=== PATIENT | female | born 1970 | race Two or more races ===

== ENCOUNTER → 2024-05-11 | Outpatient (CLI) | payer BC, SELFPAY ==
[2024-05-11 14:39] LABS: Misc Send Out* See Sep Rpt
[2024-05-11 15:31] LABS: Basophils % (Auto) 1 % (0-2.5); Eosinophils # (Auto) 0.1 Thou/mm3 (0.0-0.5); Eosinophils % (Auto) 3 % (0-10); Hematocrit 39.1 % (36.0-46.0); Hemoglobin 12.7 g/dL (12.0-16.0); Immature Granulocytes % (Auto) 1 % (0-0); Immature Granulocytes Auto 0.02 Thou/mm3 (0.00-0.00); Lymphocytes # (Auto) 1.3 Thou/mm3 (1.0-4.8); Lymphocytes % (Auto) 33 % (10-50); Mean Corpuscular HGB Conc 32.5 g/dl (31.0-37.0); Mean Corpuscular Hemoglobin 29.8 pg (25.0-35.0); Mean Corpuscular Volume 92 fL (80-100); Monocytes # (Auto) 0.3 Thou/mm3 (0.0-0.8); Monocytes % (Auto) 7 % (0-12); Neutrophils # (Auto) 2.3 Thou/mm3 (1.8-7.7); Neutrophils % (Auto) 56 % (37-80); Nucleated Red Blood Cell % 0 /100 WBC (0); Platelet Count 188 Thou/mm3 (140-440); RDW Standard Deviation 41.2 fL (36.4-46.3); Red Blood Count 4.26 Miln/mm3 (4.00-5.20)
[2024-05-11 15:53] LABS: Ferritin 51 ng/mL (7.3-270.7)
[2024-05-11 15:55] LABS: Folate 18.95 ng/mL (>5.38); Vitamin B12 802 pg/mL (211-911)
[2024-05-23 06:55] LABS: ANA Pattern NUCLEAR, SPECKLED; ANA Screen, IFA POSITIVE (NEGATIVE); Homocysteine* 12.6 umol/L (<10.4); IgA, Serum* 182 mg/dL (47-310); IgG, Serum* 771 mg/dL (600-1640); IgM, Serum* 116 mg/dL (50-300); Methylmalonic Acid, GC/MS/MS* 224 nmol/L (55-335); Vitamin A (Retinol)* 41 mcg/dL (38-98)
== END | disposition home or self-care (01) ==
LOC: COPL 14:15
PROVIDERS: PCP Family Medicine; Referring Provider Nurse Practitioner Family; Visit Provider Nurse Practitioner Family
DX: R76.0 Raised antibody titer (principal); R79.9 Abnormal finding of blood chemistry, unspecified
CPT/HCPCS: 36415; 82607; 82728; 82746; 82784; 83090; 83921; 84590; 85025; 86038; 86039

== ENCOUNTER → 2024-06-07 | Outpatient (CLI) | payer BC, SELFPAY | END | disposition home or self-care (01) | LOC: SLDO 11:55 | PROVIDERS: PCP Nurse Practitioner Family; Referring Provider Nurse Practitioner Family; Visit Provider Nurse Practitioner Family | DX: N39.0 Urinary tract infection, site not specified (principal) | CPT/HCPCS: 87077; 87086; 87186 ==

== ENCOUNTER → 2024-06-17 | Outpatient (CLI) | payer BC, SELFPAY ==
--- NOTE | 2024-06-17 16:00 | XR_ITS ---
Examination: Ultrasound soft tissue extremity right hip TECHNIQUE: Grayscale sonographic images soft tissue right hip Exam date and time: June 17, 2024 1455 hours INDICATIONS: Palpable lump upper posterior right hip note is beginning 2 years ago, increasing in size FINDINGS: 2.4 x 1.4 x 2.6 cm solid mass, vascular in the soft tissue posterior right hip area IMPRESSION: 2.4 x 1.4 x 2.6 cm soft tissue solid mass with vascularity posterior right hip Differential would include soft tissue tumor Recommend MRI right hip pelvis follow-up pre and postcontrast
== END | disposition home or self-care (01) ==
LOC: CDIM 14:42
PROVIDERS: PCP Family Medicine; Referring Provider Nurse Practitioner Family; Visit Provider Nurse Practitioner Family
DX: R22.41 Localized swelling, mass and lump, right lower limb (principal)
CPT/HCPCS: 76882

== ENCOUNTER → 2024-06-23 | Outpatient (CLI) | payer BC, SELFPAY ==
[2024-06-23 17:13] LABS: Alanine Aminotransferase 13 U/L (10-49); Albumin, Serum 4.6 gm/dL (3.5-5.0); Alkaline Phosphatase 129 U/L (46-116); Anion Gap 10 (7-16); Aspartate Amino Transferase 21 U/L (0-34); BUN/Creatinine Ratio 11 Ratio (12-20); Bilirubin,Total 0.4 mg/dL (0.3-1.2); Blood Urea Nitrogen 9 mg/dL (9-23); Calcium 10.1 mg/dL (8.3-10.6); Calcium (Corrected) 10.1 mg/dL (8.5-10.1); Carbon Dioxide 25.3 mMol/L (20.0-31.0); Chloride 110 mMol/L (98-107); Creatinine (Component) 0.8 mg/dL (0.6-1.3); Globulin 2.3 gm/dL (2.3-3.5); Glucose 94 mg/dL (74-106); Osmolality,Calculated 287 (275-295); Sodium 145 mMol/L (136-145); Total Protein 6.9 gm/dL (5.7-8.2); eGFR > 60 See Note
== END | disposition home or self-care (01) ==
LOC: COPL 15:26
PROVIDERS: PCP Family Medicine; Referring Provider Nurse Practitioner Family; Visit Provider Nurse Practitioner Family
DX: R53.82 Chronic fatigue, unspecified (principal)
CPT/HCPCS: 36415; 80053

== ENCOUNTER → 2024-06-28 | Outpatient (CLI) | payer BC, SELFPAY ==
--- NOTE | 2024-06-28 14:15 | XR_ITS ---
Examination: Screening digital mammography, bilateral Computer aided detection 3-D breast Tomosynthesis, bilateral Date and time of exam: June 28, 2024 1404 hours Compared to mammograms dating to September 03, 2016 Indication: Screening Technique: Nonmagnified MLO, CC views of the breasts to been obtained, reconstructed from 3-D Tomosynthesis images. R2 computer aided detection program utilized for evaluation of suspicious masses and/or abnormal calcifications. 3-D Tomosynthesis images obtained. Findings: Scattered areas of fibroglandular density. Benign calcifications. Intact implants. No interval suspicious masses Impression: BI-RADS category II: Benign Findings. Recommend 1 year follow-up mammogram.
== END | disposition home or self-care (01) ==
LOC: CDIM 13:48
PROVIDERS: Referring Provider Student in an Organized Health Care Education/Training Program; Visit Provider Student in an Organized Health Care Education/Training Program
DX: Z12.31 Encounter for screening mammogram for malignant neoplasm of breast (principal); R92.323 Mammographic fibroglandular density, bilateral breasts; R92.1 Mammographic calcification found on diagnostic imaging of breast
CPT/HCPCS: 77063; 77067

== ENCOUNTER → 2024-07-13 | Outpatient (CLI) | payer BC, SELFPAY | END | disposition home or self-care (01) | LOC: SLDO 15:12 | PROVIDERS: PCP Nurse Practitioner Family; Referring Provider Nurse Practitioner Family; Visit Provider Nurse Practitioner Family | DX: N39.0 Urinary tract infection, site not specified (principal) | CPT/HCPCS: 87077; 87086; 87186 ==

== ENCOUNTER → 2024-07-16 | Outpatient (CLI) | payer BC, SELFPAY ==
--- NOTE | 2024-07-16 07:30 | XR_ITS ---
Examination: MRI abdomen pelvis with intravenous contrast Technique: Multiple axial sagittal coronal MRI images pelvis Exam date and time: July 16, 1999 2507 400 hours Indications: Palpable mass lower back note is beginning 2 years ago Findings: Circumscribed mass in the soft tissue posterior lower back on the right at the area concern, 25 x 10 mm with small rim-like enhancement Bones of the pelvis intact No mass within the pelvis Urinary bladder intact No right or left hip abnormality Impression: Circumscribed 25 at 10 mm mass with rim-like enhancement in the soft tissue posterior lower back on the right at the area concern Imaging characteristics favor benign soft tissue mass including cyst, sebaceous mass, less likely abscess Consider ultrasound-guided aspiration biopsy of this mass post intravenous administration 18 cc gadolinium
--- NOTE | 2024-07-16 08:00 | XR_ITS ---
Examination: MRI right hip with intravenous contrast Technique: Multiple MR images axial sagittal coronal right hip post intravenous administration 50 cc gadolinium Exam date and time: July 1999 2507 400 hours Indications: Soft tissue mass posterior lower back note is beginning 2 years ago. Findings: Adequate marrow signal right hip No bone contusion marrow edema or occult fracture or avascular process Asymmetric right hip effusion Labral margins appear intact Please see the MRI pelvis report, the [id number] including the mass of concern Impression: No right hip abnormality Please see the MRI pelvis report
== END | disposition home or self-care (01) ==
LOC: SMRI 06:58
PROVIDERS: PCP Family Medicine; Referring Provider Nurse Practitioner Family; Visit Provider Nurse Practitioner Family
DX: R19.09 Other intra-abdominal and pelvic swelling, mass and lump (principal)
CPT/HCPCS: 72196; 73722; A9579

== ENCOUNTER 2024-07-17 14:40 | Emergency (ER) | payer BC, SELFPAY ==
[2024-07-17 14:42] VITALS: BMI 27.2
[2024-07-17 14:56] VITALS: BP 143/81; PULSE 108; RESP 18; TEMP 36.7; O2SAT 97
--- NOTE | 2024-07-17 15:06 | PD.EDRME ---
Rapid Medical Screening Exam RME Arrival date/time: 07/17/24 14:40 This is a 53-year-old female that comes in with complaints of right leg pain specifically right upper thigh pain. Patient states that her right upper thigh is swollen and feels like there is a bump to it. Patient states her leg feels cold patient able to move the leg with pain. Patient has a history of migraine, asthma, depression, anxiety, pulmonary embolism. Patient also complains of lower back pain. Patient had an MRI done yesterday for a separate issue see results. I have greeted and performed a focused initial assessment of this patient. Initial appropriate labs ordered at this time. A comprehensive ED assessment and evaluation of the patient and analysis of all test and completion of medical decision making process will be conducted by additional ED provider. Chief Complaint: Extremity Problem,Nontraumatic Time Seen by Provider: 07/17/24 14:58 Vital signs: Vital Signs Temperature 98.1 F 07/17/24 14:56 Pulse Rate 108 H 07/17/24 14:56 Respiratory Rate 18 07/17/24 14:56 Blood Pressure 143/81 H 07/17/24 14:56 Pulse Oximetry (%) 97 07/17/24 14:56 Oxygen Delivery Method Room Air 07/17/24 14:56
--- NOTE | 2024-07-17 15:16 | XR_ITS ---
Examination: Duplex scan of the lower extremity, unilateral right complete Date and time of exam: July 17, 2024 1537 hrs. Indications: Right leg swelling and pain beginning 3 days ago Technique: Duplex scan of the extremity veins using B-mode/grayscale imaging and Doppler spectral analysis and color flow Attention is directed to internal echogenicity, compression and augmentation involving these veins, color flow assessment, spectral analysis Findings: Major deep venous structures in the extremity demonstrate normal course and caliber. There is no evidence of deep vein thrombosis. Normal color flow and spectral analysis Impression: Negative for DVT..
--- NOTE | 2024-07-17 15:16 | XR_ITS ---
Examination: Ultrasound soft tissue extremity right thigh Technique: Grayscale sonographic images soft tissue right upper thigh Exam date and time: July 17, 2024 1545 hrs. Indications: Right upper thigh swelling and pain beginning 3 days ago Findings: No cystic or solid mass depicted Impression: No cystic or solid mass depicted If symptoms persist, consider MRI done without contrast follow-up
[2024-07-17 16:22] LABS: Basophils % (Auto) 0 % (0-2.5); Eosinophils % (Auto) 1 % (0-10); Hematocrit 43.6 % (36.0-46.0); Hemoglobin 14.2 g/dL (12.0-16.0); Immature Granulocytes % (Auto) 0 % (0-0); Immature Granulocytes Auto 0.01 Thou/mm3 (0.00-0.00); Lymphocytes # (Auto) 1.1 Thou/mm3 (1.0-4.8); Lymphocytes % (Auto) 27 % (10-50); Mean Corpuscular HGB Conc 32.6 g/dl (31.0-37.0); Mean Corpuscular Hemoglobin 29.6 pg (25.0-35.0); Mean Corpuscular Volume 91 fL (80-100); Monocytes # (Auto) 0.2 Thou/mm3 (0.0-0.8); Monocytes % (Auto) 5 % (0-12); Neutrophils # (Auto) 2.6 Thou/mm3 (1.8-7.7); Neutrophils % (Auto) 67 % (37-80); Nucleated Red Blood Cell % 0 /100 WBC (0); RDW Standard Deviation 43.1 fL (36.4-46.3); Red Blood Count 4.79 Miln/mm3 (4.00-5.20); White Blood Count 3.9 Thou/mm3 (3.6-11.0)
[2024-07-17 16:31] LABS: Collection Type, Urine Voided
[2024-07-17 16:35] LABS: INR 1.1 (0.9-1.3); Prothrombin Time 11.6 Seconds (9.0-12.2)
[2024-07-17 16:35] LABS: Bilirubin,Urine Negative (Negative); Blood,Urine Negative (Negative); Clarity,Urine Clear (Clear/Hazy); Color,Urine Lt-Yellow (Lt Yel-Yel); Culture Indicated,Urine Not Indicated; Glucose, Urine Negative (Negative); Ketones,Urine Negative (Negative); Leukocyte Esterase,Urine Negative (Negative); Nitrite,Urine Negative (Negative); PH,Urine 7.5 (5.0-7.0); Protein,Urine Trace (Neg - Trace); RBC,Urine 2 /hpf (0-3); Specific Gravity,Urine 1.015 (1.001-1.035); Squamous Epithelial Cell,Urine < 1 /hpf (0-5); Urobilinogen,Urine Negative mg/dL (0.0-1.0); WBC,Urine 1 /hpf (0-5)
[2024-07-17 16:42] LABS: Platelet Count 150 Thou/mm3 (140-440)
[2024-07-17 16:44] LABS: Alanine Aminotransferase 16 U/L (10-49); Albumin, Serum 4.9 gm/dL (3.5-5.0); Alkaline Phosphatase 144 U/L (46-116); Anion Gap 9 (7-16); Aspartate Amino Transferase 22 U/L (0-34); BUN/Creatinine Ratio 13 Ratio (12-20); Bilirubin,Total 0.4 mg/dL (0.3-1.2); Blood Urea Nitrogen 9 mg/dL (9-23); Calcium 9.8 mg/dL (8.3-10.6); Calcium (Corrected) 9.8 mg/dL (8.5-10.1); Carbon Dioxide 26.4 mMol/L (20.0-31.0); Chloride 107 mMol/L (98-107); Creatinine (Component) 0.7 mg/dL (0.6-1.3); Globulin 2.4 gm/dL (2.3-3.5); Glucose 101 mg/dL (74-106); Osmolality,Calculated 281 (275-295); Potassium 3.7 mMol/L (3.4-5.1); Sodium 142 mMol/L (136-145); Total Protein 7.3 gm/dL (5.7-8.2); eGFR > 60 See Note
[2024-07-17 19:48] VITALS: RESP 18
--- NOTE | 2024-07-17 19:49 | EDNOTE_ITS ---
<Statement entered by Zahra Anne MD - 07/21/24 13:24> As co-signing physician, I was present and available for consult prn. I concur with the plan and care as documented by the midlevel provider. ED Extremity Problem RME/HPI General Chief complaint: Extremity Problem,Nontraumatic Stated complaint: SWELLING/PAIN RIGHT LEG x 3 DAYS, HX PE Time Seen by Provider: 07/17/24 14:58 Arrival date/time: 07/17/24 14:40 This is a 53-year-old female that comes in with complaints of right leg pain specifically right upper thigh pain. Patient states that her right upper thigh is swollen and feels like there is a bump to it. Patient states her leg feels cold patient able to move the leg with pain. Patient has a history of migraine, asthma, depression, anxiety, pulmonary embolism. Patient also complains of lower back pain. Limitations: no limitations RME / HPI RME / HPI Narrative: 07/17/24 14:40 This is a 53-year-old female that comes in with complaints of right leg pain specifically right upper thigh pain. Patient states that her right upper thigh is swollen and feels like there is a bump to it. Patient states her leg feels cold patient able to move the leg with pain. Patient has a history of migraine, asthma, depression, anxiety, pulmonary embolism. Patient also complains of lower back pain. Patient had an MRI done yesterday for a separate issue see results. I have greeted and performed a focused initial assessment of this patient. Initial appropriate labs ordered at this time. A comprehensive ED assessment and evaluation of the patient and analysis of all test and completion of medical decision making process will be conducted by additional ED provider. Related Data Home Medications ?Medication ?Instructions ?Recorded ?Confirmed Hydrocodone/Acetaminophen (NORCO 1 tab PO Q6H PRN PAIN #0 tabs 02/18/14 06/18/21 10/325) sumatriptan succinate 100 mg 100 mg PO PRN Migraine He adache #0 10/16/16 06/18/21 tablet (Imitrex) tabs alprazolam 0.5 mg tablet (Xanax) 0.5 mg PO .PRN 06/18/21 tizanidine 4 mg capsule 2 mg PO QHS Migraine Headach e/s 09/10/17 06/18/21 bupropion HCl 150 mg 24 hr tablet, 150 mg PO QDAY Anxi ety 02/04/21 06/18/21 extended release cyanocobalamin (vitamin B-12) 1,000 mcg subcut QWEEK 0 02/04/21 06/18/21 1,000 mcg/mL injection solution estradiol 0.0375 mg/24 hr mg topical QWEEK 02/04/21 semiweekly transdermal patch hydrocodone 10 mg-acetaminophen 10 tab PO Q6H PRN Pain , Moderate 02/04/21 06/18/21 325 mg tablet morphine 30 mg tablet,extended 15 mg PO Q8HR 02/04/21 06/18/21 release omeprazole 40 mg capsule,delayed 40 mg PO QDAY GERD 02/04/21 release topiramate 100 mg tablet (Topamax) mg DAILY 06/18/21 Allergies Allergy/AdvReac Type Severity Reaction Status Date / Time No Known Allergies Allergy Verified 07/17/24 14:42 Review of Systems Review of Systems Systems Reviewed: All systems reviewed, normal except as documented Narrative Review of Systems: Gen: No fever, no chills, no weight loss EYES: No discharge, no visual changes, no pain HEENT: No ear pain, no congestion, no sore throat PULM: No shortness of breath, no cough, no congestion CV: No chest pain, no dyspnea on exertion, no palpitations GI: No nausea, no vomiting, no diarrhea, no pain, no constipation : No frequency, no urgency,? no dysuria Musc/skel: rt upper thigh pain, no back pain Skin: No rash? Psyc: No hallucinations, no depression Heme/Lymph: No easy bleeding or bruising tendencies Neuro: No weakness, no headache ED Exam General Limitations: Present no limitations General appearance: Present alert and in no apparent distress Head Head exam: Present atraumatic Eye Eye exam: Present normal appearance, PERRL and EOMI ENT ENT exam: Present normal exam, normal oropharynx and mucous membranes moist Neck Neck exam: Present normal inspection, full ROM and trachea midline Chest Chest inspection: Present normal inspection and symmetric chest wall rise Respiratory Respiratory exam: Present normal lung sounds bilaterally Cardiovascular Cardiovascular exam: Present regular rate, normal rhythm and normal heart sounds Abdominal Exam Abdominal exam: Present soft and normal bowel sounds Extremities Exam Extremities exam: Present normal inspection and full ROM Back Exam Back exam: Present normal inspection and full ROM Neurological Exam Neurological exam: Present alert, oriented X3 and CN II-XII intact Psychiatric Psychiatric exam: Present normal affect and normal mood Skin Skin exam: Present warm, dry, intact and normal color Course Quality Measures none Orders Category Date Time Status US soft tissue lower back abd Stat Exams 07/17/24 15:16 Completed US venous doppler LE RT Stat Exams 07/17/24 15:16 Completed CBC Stat Lab 07/17/24 16:08 Completed Comprehensive Metabolic Panel Stat Lab 07/17/24 16:08 Completed PT [Prothrombin Time with INR] Stat Lab 07/17/24 16:08 Completed Urinalysis, C/S if Indicated Stat Lab 07/17/24 16:10 Completed Vital Signs Vital signs: Vital Signs Temperature 98.1 F 07/17/24 14:56 Pulse Rate 108 H 07/17/24 14:56 Respiratory Rate 18 07/17/24 14:56 Blood Pressure 143/81 H 07/17/24 14:56 Pulse Oximetry (%) 97 07/17/24 14:56 Oxygen Delivery Method Room Air 07/17/24 14:56 Extremity Problem MDM Narrative MDM Narrative:: Advised patient all imaging are reassuring, no signs of DVT. no Abscess or DVT. Advised to follow up with pcp for further evaluation. Patient data External records reviewed:: [facility] previous records Clinical information provided by:: patient Social determinants that could affect healthcare access:: none Patient has the following chronic illnesses:: no How is presenting disease/condition affected by chronic disease/condition?: no chronic disease Evaluation data The following diagnostics were reviewed and interpreted by me:: other (specify) Lab and/or radiology exams considered but not ordered:: no Interpretation Summary: Examination: Ultrasound soft tissue extremity right thigh Technique: Grayscale sonographic images soft tissue right upper thigh Exam date and time: July 17, 2024 1545 hrs. Indications: Right upper thigh swelling and pain beginning 3 days ago Findings: No cystic or solid mass depicted Impression: No cystic or solid mass depicted If symptoms persist, consider MRI done without contrast follow-up Examination: Duplex scan of the lower extremity, unilateral right complete Date and time of exam: July 17, 2024 1537 hrs. Indications: Right leg swelling and pain beginning 3 days ago Technique: Duplex scan of the extremity veins using B-mode/grayscale imaging and Doppler spectral analysis and color flow Attention is directed to internal echogenicity, compression and augmentation involving these veins, color flow assessment, spectral analysis Findings: Major deep venous structures in the extremity demonstrate normal course and caliber. There is no evidence of deep vein thrombosis. Normal color flow and spectral analysis Impression: Negative for DVT.. Medications / Prescriptions Medications or Prescriptions considered but not ordered:: no Medication administrations:: no Consultations Consultation(s) initiated? (list below): No Diagnosis Extremity Problem Differential Diagnosis: cellulitis, superficial thrombophlebi tis, deep venous thrombosis of upper extremity, lower extremity edema and deep vein thrombosis of lower extremity Most likely diagnosis given after review of the tests above:: Thigh pain poss Sciatica Admission Indicated Admission indicated?: not indicated Admission Request Was there a request for admission?: No Disposition Plan Disposition Plan: Discharge Discharge Attestation Discharge Attestation: The patient and all family members were given an opportunity to ask questions and understood the discharge instructions. Discharge instructions specifically effects, indications for sooner follow up or return to the emergency department, and the expected course of current diagnosis. Patient condition: Stable Discharge Plan Plan Patient Disposition: HOME (Self Care) Prescriptions/Referrals Prescriptions/Med Rec: No Action alprazolam [Xanax] 0.5 mg tablet 0.5 mg PO .PRN tizanidine 4 mg capsule 2 mg PO QHS Hydrocodone/Acetaminophen (NORCO 10/325) 1 TAB tablet 1 tab PO Q6H PRN (Reason: PAIN) Qty: 0 sumatriptan succinate [Imitrex] 100 MG tablet 100 mg PO PRN Qty: 0 hydrocodone-acetaminophen 10-325 mg tablet 10 tab PO Q6H PRN (Reason: Pain, Moderate) Patient Comments: TAKE 1/2 TABLET BY MOUTH EVERY 6 HOURS NEEDED omeprazole 40 mg capsule,delayed release(DR/EC) 40 mg PO QDAY cyanocobalamin (vitamin B-12) 1,000 mcg/mL solution 1,000 mcg SUBCUT QWEEK estradiol 0.0375 mg/24 hr patch semiweekly TOPICAL QWEEK bupropion HCl 150 mg tablet extended release 24 hr 150 mg PO QDAY morphine 30 mg tablet extended release 15 mg PO Q8HR topiramate [Topamax] 100 mg Tablet DAILY Referrals: Boateng,Daron, MD [Primary Care Provider] - In 1 week Problem List Clinical Impression: Acute thigh pain Patient/Caregiver Discharge Instructions Discharge Activity: activity as tolerated Education Materials: ED Pain, Acute, Uncertain Cause Additional Instructions: please follow up with your PCP Return to ER if any worsening symptoms. Print Language: Vietnamese Stand Alone Forms: Laura Award Info., Patient Portal Info Letter PA/HEAD HOST/HOSTESS Supervising Physician PA/HEAD HOST/HOSTESS Supervising Physician: dr. Dave
== END 2024-07-17 19:49 | disposition home or self-care (01) ==
PROVIDERS: Nurse Practitioner Family; Emergency Provider Emergency Medicine; PCP Family Medicine
DX: M79.651 Pain in right thigh (principal); J45.909 Unspecified asthma, uncomplicated; F41.9 Anxiety disorder, unspecified; F32.A Depression, unspecified; M54.50 Low back pain, unspecified
CPT/HCPCS: 36415; 76705; 80053; 81001; 85025; 85610; 93971; 99284

== ENCOUNTER → 2024-07-20 | Outpatient (CLI) | payer BC, SELFPAY ==
[2024-07-20 18:17] LABS: D-Dimer 346 ng/mL (<600)
== END | disposition home or self-care (01) ==
LOC: COPL 16:12
PROVIDERS: PCP Nurse Practitioner Family; Referring Provider Nurse Practitioner Family; Visit Provider Nurse Practitioner Family
DX: R22.41 Localized swelling, mass and lump, right lower limb (principal)
CPT/HCPCS: 36415; 85379

== ENCOUNTER → 2024-09-28 | Outpatient (CLI) | payer BC, SELFPAY ==
[2024-09-27 15:25] LABS: Basophils % (Auto) 1 % (0-2.5); Eosinophils # (Auto) 0.1 Thou/mm3 (0.0-0.5); Eosinophils % (Auto) 3 % (0-10); Hematocrit 37.4 % (36.0-46.0); Hemoglobin 12.7 g/dL (12.0-16.0); Immature Granulocytes % (Auto) 0 % (0-0); Immature Granulocytes Auto 0.01 Thou/mm3 (0.00-0.00); Lymphocytes # (Auto) 1.3 Thou/mm3 (1.0-4.8); Lymphocytes % (Auto) 32 % (10-50); Mean Corpuscular Hemoglobin 30.3 pg (25.0-35.0); Mean Corpuscular Volume 89 fL (80-100); Monocytes # (Auto) 0.2 Thou/mm3 (0.0-0.8); Monocytes % (Auto) 5 % (0-12); Neutrophils # (Auto) 2.5 Thou/mm3 (1.8-7.7); Neutrophils % (Auto) 60 % (37-80); Nucleated Red Blood Cell % 0 /100 WBC (0); Platelet Count 145 Thou/mm3 (140-440); RDW Standard Deviation 42.4 fL (36.4-46.3); Red Blood Count 4.19 Miln/mm3 (4.00-5.20); White Blood Count 4.2 Thou/mm3 (3.6-11.0)
[2024-09-27 15:36] LABS: Partial Thromboplastin Time 26.7 Seconds (22.0-36.0); Prothrombin Time 10.9 Seconds (9.0-12.2)
--- NOTE | 2024-09-28 08:00 | XR_ITS ---
Examination: Ultrasound soft tissue back TECHNIQUE: Grayscale sonographic images soft tissue right lower medial back Exam date and time: September 28, 2024 at 911 hours INDICATIONS: Lower back lobe for years FINDINGS: Soft tissue mass in the lower back subcutaneous at the area concern, 16 x 9 x 11 mm IMPRESSION: Soft tissue marginated mass in the lower back 16 x 9 x 11 mm, consider lipoma
--- NOTE | 2024-09-28 08:30 | XR_ITS ---
Examination: Ultrasound-guided biopsy soft tissue mass lower medial right back Ultrasound soft tissue lower back limited Exam date and time: September 28, 2024 0915 hours INDICATIONS: Ultrasound soft tissue medial lower back 16 x 9 x 11 mm mass TECHNIQUE AND FINDINGS: Informed consent provided. Timeout performed. Skin prepped over the lower back and sterile drape applied hand hygiene ultrasound sterile technique 1% lidocaine administered for local anesthesia Utilizing ultrasonographic guidance 8 core biopsies obtained of the soft tissue mass in the right lower medial back Estimated blood loss 1 cc IMPRESSION: Successful ultrasound-guided biopsy soft tissue mass lower medial right back
== END | disposition home or self-care (01) ==
LOC: SIRX 07:37
PROVIDERS: Radiology Diagnostic Radiology; PCP Nurse Practitioner Family; Referring Provider Nurse Practitioner Family; Visit Provider Nurse Practitioner Family
DX: I96 Gangrene, not elsewhere classified (principal); L98.8 Other specified disorders of the skin and subcutaneous tissue; Z01.812 Encounter for preprocedural laboratory examination
CPT/HCPCS: 20206; 36415; 76705; 85025; 85610; 85730

== ENCOUNTER → 2024-09-30 | Outpatient (CLI) | payer BC, SELFPAY | END | disposition home or self-care (01) | LOC: SLDO 15:30 | PROVIDERS: PCP Nurse Practitioner Family; Referring Provider Nurse Practitioner Family; Visit Provider Nurse Practitioner Family | DX: N39.0 Urinary tract infection, site not specified (principal) | CPT/HCPCS: 87077; 87086; 87186 ==

== ENCOUNTER → 2024-09-30 | Outpatient (CLI) | payer BC, SELFPAY ==
[2024-09-30 11:42] LABS: Hemoglobin 13.7 g/dL (12.0-16.0); Immature Granulocytes % (Auto) 0 % (0-0); Immature Granulocytes Auto 0.01 Thou/mm3 (0.00-0.00); Nucleated Red Blood Cell % 0 /100 WBC (0)
[2024-09-30 11:47] LABS: Basophils % (Auto) 1 % (0-2.5); Eosinophils # (Auto) 0.1 Thou/mm3 (0.0-0.5); Eosinophils % (Auto) 2 % (0-10); Hematocrit 40.5 % (36.0-46.0); Lymphocytes % (Auto) 23 % (10-50); Mean Corpuscular HGB Conc 33.8 g/dl (31.0-37.0); Mean Corpuscular Hemoglobin 30.4 pg (25.0-35.0); Mean Corpuscular Volume 90 fL (80-100); Monocytes # (Auto) 0.2 Thou/mm3 (0.0-0.8); Monocytes % (Auto) 5 % (0-12); Neutrophils # (Auto) 3.1 Thou/mm3 (1.8-7.7); Neutrophils % (Auto) 70 % (37-80); Platelet Count 152 Thou/mm3 (140-440); RDW Standard Deviation 41.5 fL (36.4-46.3); Red Blood Count 4.51 Miln/mm3 (4.00-5.20); White Blood Count 4.4 Thou/mm3 (3.6-11.0)
[2024-09-30 12:10] LABS: Alanine Aminotransferase 13 U/L (10-49); Albumin, Serum 4.3 gm/dL (3.5-5.0); Albumin/Globulin Ratio 1.9 (1.2-2.2); Alkaline Phosphatase 93 U/L (46-116); Anion Gap 6 (7-16); Aspartate Amino Transferase 21 U/L (0-34); BUN/Creatinine Ratio 11 Ratio (12-20); Bilirubin,Total 0.6 mg/dL (0.3-1.2); Blood Urea Nitrogen 8 mg/dL (9-23); Calcium 9.6 mg/dL (8.3-10.6); Calcium (Corrected) 9.6 mg/dL (8.5-10.1); Carbon Dioxide 26.8 mMol/L (20.0-31.0); Chloride 107 mMol/L (98-107); Creatinine (Component) 0.7 mg/dL (0.6-1.3); Globulin 2.3 gm/dL (2.3-3.5); Glucose 96 mg/dL (74-106); Osmolality,Calculated 277 (275-295); Potassium 4.2 mMol/L (3.4-5.1); Sodium 140 mMol/L (136-145); Total Protein 6.6 gm/dL (5.7-8.2); eGFR > 60 See Note
[2024-09-30 12:32] LABS: C-Reactive Protein < 0.5 mg/dL (0.0-0.9)
[2024-09-30 15:08] LABS: Sed Rate (ESR) 4 mm/hr (0-30)
[2024-10-06 06:36] LABS: CCP Antibody (IgG)* <16 Units
== END | disposition home or self-care (01) ==
LOC: COPL 10:43
PROVIDERS: PCP Family Medicine
DX: E11.65 Type 2 diabetes mellitus with hyperglycemia (principal); F34.1 Dysthymic disorder; M79.7 Fibromyalgia; R63.5 Abnormal weight gain; R76.8 Other specified abnormal immunological findings in serum; Z83.2 Family history of diseases of the blood and blood-forming organs and certain disorders involving the immune mechanism; Z98.84 Bariatric surgery status
CPT/HCPCS: 36415; 80053; 85025; 85652; 86140; 86200

== ENCOUNTER → 2024-12-26 | Outpatient (CLI) | payer BC, SELFPAY ==
[2024-12-26 14:34] LABS: Collection Type, Urine Clean Catch
[2024-12-26 16:00] LABS: Bacteria,Urine 1+; Bilirubin,Urine Negative (Negative); Blood,Urine Negative (Negative); Clarity,Urine Clear (Clear/Hazy); Color,Urine Yellow (Lt Yel-Yel); Glucose, Urine Negative (Negative); Ketones,Urine Negative (Negative); Leukocyte Esterase,Urine Positive (Negative); Nitrite,Urine Negative (Negative); PH,Urine 6.5 (5.0-7.0); Protein,Urine Negative (Neg - Trace); RBC,Urine 1 /hpf (0-3); Specific Gravity,Urine 1.017 (1.001-1.035); Squamous Epithelial Cell,Urine 2 /hpf (0-5); Transitional Epi Cells,Urine < 1 /hpf (0-5); Urobilinogen,Urine Negative mg/dL (0.0-1.0); WBC,Urine 71 /hpf (0-5)
== END | disposition home or self-care (01) ==
LOC: SLDO 14:27
PROVIDERS: PCP Nurse Practitioner Family; Referring Provider Nurse Practitioner Family; Visit Provider Nurse Practitioner Family
DX: N39.0 Urinary tract infection, site not specified (principal)
CPT/HCPCS: 81001; 87077; 87086; 87186

== ENCOUNTER → 2025-01-31 | Outpatient (CLI) | payer BC, SELFPAY ==
[2025-01-31 15:36] LABS: Collection Type, Urine Clean Catch
[2025-01-31 17:42] LABS: Bacteria,Urine Rare; Bilirubin,Urine Negative (Negative); Blood,Urine Negative (Negative); Clarity,Urine Turbid (Clear/Hazy); Color,Urine Yellow (Lt Yel-Yel); Glucose, Urine Negative (Negative); Ketones,Urine Negative (Negative); Leukocyte Esterase,Urine Positive (Negative); Nitrite,Urine Negative (Negative); PH,Urine 8.5 (5.0-7.0); Protein,Urine 1+ (Neg - Trace); RBC,Urine 5 /hpf (0-3); Specific Gravity,Urine 1.028 (1.001-1.035); Squamous Epithelial Cell,Urine 1 /hpf (0-5); Urobilinogen,Urine 4.0 mg/dL (0.0-1.0); WBC,Urine 142 /hpf (0-5)
== END | disposition home or self-care (01) ==
LOC: SLDO 15:18
PROVIDERS: PCP Nurse Practitioner Family; Referring Provider Nurse Practitioner Family; Visit Provider Nurse Practitioner Family
DX: N30.10 Interstitial cystitis (chronic) without hematuria (principal); N30.20 Other chronic cystitis without hematuria
CPT/HCPCS: 81001; 87077; 87086; 87186

== ENCOUNTER → 2025-04-04 | Outpatient (CLI) | payer BC, SELFPAY ==
[2025-04-04 16:34] LABS: Basophils # (Auto) 0.0 Thou/mm3 (0.0-0.2); Basophils % (Auto) 1 % (0-2.5); Eosinophils # (Auto) 0.0 Thou/mm3 (0.0-0.5); Eosinophils % (Auto) 1 % (0-10); Hematocrit 42.2 % (36.0-46.0); Hemoglobin 13.6 g/dL (12.0-16.0); Immature Granulocytes Auto 0.01 Thou/mm3 (0.00-0.00); Lymphocytes # (Auto) 1.5 Thou/mm3 (1.0-4.8); Lymphocytes % (Auto) 30 % (10-50); Mean Corpuscular HGB Conc 32.2 g/dl (31.0-37.0); Mean Corpuscular Hemoglobin 29.2 pg (25.0-35.0); Mean Corpuscular Volume 91 fL (80-100); Monocytes # (Auto) 0.3 Thou/mm3 (0.0-0.8); Monocytes % (Auto) 6 % (0-12); Neutrophils # (Auto) 3.0 Thou/mm3 (1.8-7.7); Neutrophils % (Auto) 62 % (37-80); Nucleated Red Blood Cell # 0.00 Thou/mm3 (0.00-0.00); Nucleated Red Blood Cell % 0 /100 WBC (0); Platelet Count 214 Thou/mm3 (140-440); RDW Standard Deviation 45.4 fL (36.4-46.3); Red Blood Count 4.65 Miln/mm3 (4.00-5.20); White Blood Count 4.9 Thou/mm3 (3.6-11.0)
[2025-04-04 17:08] LABS: Alanine Aminotransferase 18 U/L (10-49); Albumin, Serum 4.8 gm/dL (3.5-5.0); Albumin/Globulin Ratio 2.7 (1.2-2.2); Alkaline Phosphatase 89 U/L (46-116); Anion Gap 11 (7-16); Aspartate Amino Transferase 26 U/L (0-34); BUN/Creatinine Ratio 9 Ratio (12-20); Bilirubin,Total 0.7 mg/dL (0.3-1.2); Blood Urea Nitrogen 7 mg/dL (9-23); C-Reactive Protein < 0.5 mg/dL (0.0-0.9); Calcium 9.6 mg/dL (8.3-10.6); Calcium (Corrected) 9.6 mg/dL (8.5-10.1); Carbon Dioxide 26.2 mMol/L (20.0-31.0); Chloride 108 mMol/L (98-107); Creatinine (Component) 0.8 mg/dL (0.6-1.3); Free T4 (Free Thyroxine) 1.43 ng/dL (0.89-1.76); Globulin 1.8 gm/dL (2.3-3.5); Glucose 90 mg/dL (74-106); Osmolality,Calculated 286 (275-295); Potassium 4.2 mMol/L (3.4-5.1); Sodium 145 mMol/L (136-145); Thyroid Stimulating Hormone 0.44 uIU/mL (0.55-4.78); Total Protein 6.6 gm/dL (5.7-8.2); eGFR > 60 See Note
[2025-04-04 17:16] LABS: Sed Rate (ESR) 3 mm/hr (0-30)
[2025-04-10 07:00] LABS: Complement Component C3* 101 mg/dL (83-193); Complement Component C4c* 18 mg/dL (15-57)
== END | disposition home or self-care (01) ==
LOC: COPL 15:25
PROVIDERS: PCP Internal Medicine; Referring Provider Internal Medicine; Visit Provider Internal Medicine
DX: M35.05 Sjogren syndrome with inflammatory arthritis (principal); M79.7 Fibromyalgia; Z79.899 Other long term (current) drug therapy; R76.89 Other specified abnormal immunological findings in serum
CPT/HCPCS: 36415; 80053; 84439; 84443; 85025; 85652; 86140; 86160

== ENCOUNTER → 2025-05-11 | Outpatient (CLI) | payer BC, SELFPAY ==
[2025-05-11 16:16] LABS: Collection Type, Urine Clean Catch
[2025-05-11 17:10] LABS: Creatinine,Random Urine 137 mg/dL (30-125); Protein Total, Random Urine 62 mg/dL (1-14)
[2025-05-11 17:12] LABS: Free T3 2.3 pg/mL (2.3-4.2); Free T4 (Free Thyroxine) 1.09 ng/dL (0.89-1.76); Thyroid Stimulating Hormone 0.40 uIU/mL (0.55-4.78)
[2025-05-11 17:13] LABS: Vitamin D 25 Hydroxy Total 50.6 ng/mL (7.3-40.2)
[2025-05-11 17:20] LABS: Bilirubin,Urine Negative (Negative); Blood,Urine Negative (Negative); Clarity,Urine Clear (Clear/Hazy); Color,Urine Yellow (Lt Yel-Yel); Culture Indicated,Urine Not Indicated; Glucose, Urine Negative (Negative); Ketones,Urine Negative (Negative); Leukocyte Esterase,Urine Negative (Negative); Nitrite,Urine Negative (Negative); PH,Urine 6.5 (5.0-7.0); Protein,Urine 1+ (Neg - Trace); RBC,Urine 1 /hpf (0-3); Specific Gravity,Urine 1.027 (1.001-1.035); Squamous Epithelial Cell,Urine 6 /hpf (0-5); Urobilinogen,Urine 2.0 mg/dL (0.0-1.0); WBC,Urine 1 /hpf (0-5)
[2025-05-12 12:44] LABS: Cocci Serology, IgM Negative (Negative)
[2025-05-13 14:33] LABS: Cocci Serology, IgG Negative (Negative)
[2025-05-17 06:31] LABS: DNA (ds) Antibody* 2 IU/mL; Thyroglobulin Antibodies* <1 IU/mL (< OR = 1); Thyroid Peroxidase Antibodies* 1 IU/mL (<9)
== END | disposition home or self-care (01) ==
LOC: COPL 14:05
PROVIDERS: PCP Family Medicine; Referring Provider Nurse Practitioner Family; Visit Provider Registered Nurse
DX: R63.4 Abnormal weight loss (principal); M35.01 Sjogren syndrome with keratoconjunctivitis; R53.83 Other fatigue
CPT/HCPCS: 36415; 81001; 82306; 82570; 84156; 84439; 84443; 84481; 86225; 86331; 86376; 86635; 86800